=== PATIENT | female | born 1995 | race Caucasian/White ===

== ENCOUNTER 2016-03-27 23:30 | Emergency (ER) | payer OTHER ==
[~2016-03-27] VITALS: Ht 157.5 cm; Wt 87.0 kg
[~2016-03-27 23:30] MED LIST: FAMO-18 PO; IBUP-1542 PO; IBUP400T22 PO; ZOF8 PO
[2016-03-27 23:35] VITALS: Ht 157.5 cm; Wt 87.0 kg
[2016-03-28] MEDS ORDERED: NAPR-260 PO (04:41)
[2016-03-28 04:54] VITALS: BP 121/62
--- NOTE | 2016-04-08 18:45 | ERD ---
ER Documentation Chief Complaint Date/Time DATE: 04/08/16 TIME: 18:42 Chief Complaint facial pain, neck pain w/ nausae since 9 am today HPI 20 year old healthy female presents with CC of intermittent neck pain and a strange tingling sensation over the left side of her face since 9am today. She denies ST, neck stiffness, fever, drooling, vocal changes, SOB, and facial symmetry/weakness. She denies recent trauma. She started that a few days ago she initially felt the pain in her chest, but that has since subsided. She has no history of any cardiac problems. She has not taken any medications for relief of her symptoms. She currently rates her pain a 2/10 in severity. ROS All systems reviewed and are negative except as per history of present illness. Medications Home Meds Active Scripts Naproxen* (Naprosyn*) 500 Mg Tablet, 500 MG PO BID for 10 Days, #20 TAB Prov:Sully Ford PA-C 03/28/16 Ibuprofen* (Ibuprofen*) 600 Mg Tablet, 600 MG PO Q6H Y for PAIN, #20 TAB Prov:RENETTA MONTALVO MD 02/03/16 Ibuprofen* (Motrin*) 400 Mg Tab, 400 MG PO Q6H Y for PAIN AND OR ELEVATED TEMP, #30 TAB Prov:ANAMARIA DANIELLE NP 09/29/15 Ibuprofen* (Motrin*) 600 Mg Tab, 600 MG PO Q6, #15 TAB Prov:RENÉ PAZ MD 08/18/15 Ondansetron Hcl* (Zofran* ODT) 8 mg -ODT Tab.disper, 8 MG PO Q6 Y for NAUSEA AND /OR VOMITING, #10 TAB Prov:RENÉ PAZ MD 10/21/14 Famotidine* (Pepcid*) 20 Mg Tablet, 20 MG PO BID for 30 Days, TAB Prov:RENÉ PAZ MD 10/21/14 Allergies Allergies: Coded Allergies: No Known Allergy (Unverified , 08/18/15) PMhx/Soc History of Surgery: No Anesthesia Reaction: No Hx Neurological Disorder: No Hx Respiratory Disorders: Yes (Asthma) Hx Cardiac Disorders: No Hx Psychiatric Problems: No Hx Miscellaneous Medical Probl: No Hx Alcohol Use: No Hx Substance Use: No Hx Tobacco Use: No Physical Exam Physical Exam GENERAL: No acute distress and nontoxic.Patient speaking coherently in full sentences. HEENT: Atraumatic.Conjunctiva normal, no injection or discharge. Bilateral eyes are PERRL EOM intact. No eyelid or lower eyelid swelling noted. Ears: Normal tympanic membrane, no erythema or bulging. No ear canal swelling. No ear discharge. Nose: no nasal discharge. Throat: Oropharynx normal. Tongue pink and moist. No tonsillar swelling or tonsillar exudates. Uvula is midline. No pooling of secretions. No lymphadenopathy. LUNGS: Clear to auscultation. No accessory muscle use. No wheezing, no crackles. No signs or symptoms of respiratory distress. HEART: Regular rate and rhythm. No murmurs, clicks, rubs or gallops. EXTREMITIES: There is no peripheral cyanosis or edema. No focal pain or notable trauma. Full range of motion. Good capillary refill. NEURO: Facial expressions are equal bilaterally, no facial droop. Normal gait. The patient moves all 4 extremities with 5/5 strength. Cranial nerves are grossly intact. Normal mental status for age. Good muscle tone. SKIN: There is no apparent rash, petechiae, erythema or swelling. Good skin turgor. Procedures/MDM Patient presented with complaints of unilateral tingling sensation in her face and pain over the left side of her neck that started yesterday. However she states the most of the pain has subsided and now she only has a tingling sensation. Pain level in triage was 2/10 in severity. She appears in NAD. On exam she shows no signs of facial asymmetry, cranial nerves are grossly intact, she is coherent and speaking in full sentences, with normal gait, has full ROM and 5/5 strength in all extremities. She has no risk factors for CVA, no PMHx of coagulation disorders or cardiac problems, and she denies smoking. The patient did say that a few days earlier she had some chest pain, which has since subsided. I ordered an EKG to rule out arrhythmia or ischemia. EKG: Normal Sinus Rhythm Rate of 81bpm normal axis no ST elevation, no signs of acute ischemia I explained to the patient and her mother that with normal exam findings and a normal EKG, it is unlikely that we will find an exact cause to her symptoms in the ER tonight. I also reassured them that I do not believe that these symptoms are a medical emergency given a normal exam, and I suggested they follow-up with PCP for a bigger work up if symptoms continue. At this time I have low suspicion for CVA, space occupying lesion, AK, dobbs's palsy, pharyngitis, parotitis, otitis media, peritonsillar abscess, and FB aspiration. Patient is stable for discharge and outpatient management. Advised to follow-up with PCP in 1-2 days. Departure Diagnosis: Primary Impression: Left facial pain Condition: Stable Patient Instructions: Understanding Neck Problems Referrals: [facility] YOU HAVE RECEIVED A MEDICAL SCREENING EXAM AND THE RESULTS INDICATE THAT YOU DO NOT HAVE A CONDITION THAT REQUIRES URGENT TREATMENT IN THE EMERGENCY DEPARTMENT. FURTHER EVALUATION AND TREATMENT OF YOUR CONDITION CAN WAIT UNTIL YOU ARE SEEN IN YOUR DOCTORS OFFICE WITHIN THE NEXT 1-2 DAYS. IT IS YOUR RESPONSIBILITY TO MAKE AN APPOINTMENT FOR FOLOW-UP CARE. IF YOU HAVE A PRIMARY DOCTOR --you should call your primary doctor and schedule an appointment IF YOU DO NOT HAVE A PRIMARY DOCTOR YOU CAN CALL OUR PHYSICIAN REFERRAL HOTLINE AT IF YOU CAN NOT AFFORD TO SEE A PHYSICIAN YOU CAN CHOSE FROM THE FOLLOWING [facility] [address] [facility] [address] [facility] [facility] [address] [facility] [facility] [address] [facility] [facility] [address] [facility]. [facility]. [address] [place] Additional Instructions: Call your primary care doctor TOMORROW for an appointment during the next 1-2 days.See the doctor sooner or return here if your condition worsens before your appointment time. Sully Ford PA-C Apr 08, 2016 18:45
== END 2016-03-28 04:43 | disposition home or self-care (01) ==
LOC: FTE 23:30
DX: R51 Headache (principal); J45.909 Unspecified asthma, uncomplicated; M54.2 Cervicalgia
CPT/HCPCS: 93005; Z7502